=== PATIENT | female | born 1965 | race Caucasian/White ===

== ENCOUNTER 2020-09-10 16:00 | Emergency (ER) | payer BC, OTHER ==
[~2020-09-10] VITALS: Ht 172.7 cm; Wt 106.0 kg
[2020-09-10 16:35] VITALS: BP 147/84
== END 2020-09-10 17:55 | disposition home or self-care (01) ==
LOC: ER 16:01
DX: R51.9 Headache, unspecified (principal); M54.2 Cervicalgia; M54.9 Dorsalgia, unspecified; F41.9 Anxiety disorder, unspecified; W01.0XXA Fall on same level from slipping, tripping and stumbling without subsequent striking against object, initial encounter; Y93.89 Activity, other specified; Y92.89 Other specified places as the place of occurrence of the external cause; Y99.8 Other external cause status
CPT/HCPCS: 99284

== ENCOUNTER 2021-11-05 21:01 | Emergency (ER) | payer MEDICAID ==
[~2021-11-05] VITALS: Ht 170.2 cm; Wt 91.0 kg
[2021-11-05 21:25] VITALS: BP 142/95
--- NOTE | 2021-11-05 21:50 | NUR ---
PATIENT IN WAITING ROOM. CT OF HEAD AND NECK ORDER PLACED PER REQUEST OF DR. AVILA. PATIENT EXHIBITS NORMAL GAIT.
[2021-11-05] MEDS ORDERED: TETanus/Pertussis (Acell)/Diphther VAC/PF (Tdap-Adult) 0.5ml syringe IMVAC ONE (22:50)
== END 2021-11-05 23:22 | disposition home or self-care (01) ==
LOC: ER 21:02
DX: S09.90XA Unspecified injury of head, initial encounter (principal); S00.01XA Abrasion of scalp, initial encounter; R51.9 Headache, unspecified; I10 Essential (primary) hypertension; F41.9 Anxiety disorder, unspecified; F32.9 Major depressive disorder, single episode, unspecified; Z20.3 Contact with and (suspected) exposure to rabies; W19.XXXA Unspecified fall, initial encounter; Y93.89 Activity, other specified; Y92.89 Other specified places as the place of occurrence of the external cause; Y99.8 Other external cause status
CPT/HCPCS: 70450; 72125; 90471; 90715; 99285